=== PATIENT | male | born 1965 | race Caucasian/White ===

== ENCOUNTER 2018-05-20 02:47 | Emergency (ER) | payer MEDICAID ==
[~2018-05-20] VITALS: Ht 182.9 cm; Wt 81.8 kg
[~2018-05-20 02:47] MED LIST: COROS OP; FLO0.4C PO; NO HOME MEDS
[2018-05-20 02:55] VITALS: BP 136/101
== END 2018-05-20 03:15 | disposition home or self-care (01) ==
LOC: ER 02:48
DX: L02.415 Cutaneous abscess of right lower limb (principal); R61 Generalized hyperhidrosis; R68.83 Chills (without fever); F17.200 Nicotine dependence, unspecified, uncomplicated; Z59.0 Homelessness; Z79.899 Other long term (current) drug therapy
CPT/HCPCS: 99281

== ENCOUNTER 2018-07-21 13:58 | Emergency (ER) | payer MEDICAID ==
[~2018-07-21] VITALS: Ht 182.9 cm; Wt 76.8 kg
[~2018-07-21 13:58] MED LIST changes: +METH4TAB81 PO
[2018-07-21 14:06] VITALS: BP 122/98
== END 2018-07-21 14:52 | disposition home or self-care (01) ==
LOC: ER 13:59
DX: G89.29 Other chronic pain (principal); M54.5 Low back pain; Z79.899 Other long term (current) drug therapy; Z59.0 Homelessness
CPT/HCPCS: 99281

== ENCOUNTER 2018-09-22 19:04 | Emergency (ER) | payer MEDICAID ==
[~2018-09-22] VITALS: Ht 182.9 cm; Wt 74.3 kg
[2018-09-22 19:12] VITALS: BP 112/64
[2018-09-22] MEDS ORDERED: ketorolac trometh. 30mg/ml inj. IM ONE (20:40)
[2018-09-22] MEDS ORDERED: TETanus/Pertussis (Acell)/Diphther VAC/PF (Tdap-Adult) 0.5ml syringe IM ONE (21:45)
[2018-09-22] MEDS ORDERED: AMOX-580 PO (21:56)
== END 2018-09-22 22:13 | disposition home or self-care (01) ==
LOC: ER 19:05
DX: S91.331A Puncture wound without foreign body, right foot, initial encounter (principal); F17.210 Nicotine dependence, cigarettes, uncomplicated; Z79.899 Other long term (current) drug therapy; Z59.0 Homelessness; W45.0XXA Nail entering through skin, initial encounter; Y93.89 Activity, other specified; Y92.89 Other specified places as the place of occurrence of the external cause; Y99.8 Other external cause status
CPT/HCPCS: 73630; 90471; 90715; 96372; 99283; J1885

== ENCOUNTER 2019-02-25 12:35 | Emergency (ER) | payer MEDICAID ==
[~2019-02-25] VITALS: Ht 185.4 cm; Wt 79.0 kg
[2019-02-25 13:00] VITALS: BP 143/87
[2019-02-25] MEDS ORDERED: ondansetron 4mg rapidly disintigrating tab PO ONE (14:00)
[2019-02-25] MEDS ORDERED: LIDOcaine 1% W/epiNEPHrine 1:200,000 10ml vial IJ ONE (14:00)
[2019-02-25] MEDS ORDERED: HYDROcodone/acetaminophen 5mg/325mg tablet PO ONE (14:00)
[2019-02-25] MEDS ORDERED: BACDS PO (14:48)
== END 2019-02-25 16:06 | disposition home or self-care (01) ==
LOC: ER 12:36
DX: L02.416 Cutaneous abscess of left lower limb (principal); F10.99 Alcohol use, unspecified with unspecified alcohol-induced disorder; Z59.0 Homelessness; Z79.899 Other long term (current) drug therapy; Y90.9 Presence of alcohol in blood, level not specified
CPT/HCPCS: 10060; 82948; 99283

== ENCOUNTER 2019-03-24 23:11 | Emergency (ER) | payer MEDICAID ==
[~2019-03-24] VITALS: Ht 182.9 cm; Wt 86.0 kg
[2019-03-24] MEDS ORDERED: TETanus/Pertussis (Acell)/Diphther VAC/PF (Tdap-Adult) 0.5ml syringe IMVAC ONE (23:50)
[2019-03-24] MEDS ORDERED: LIDOcaine 1% W/epiNEPHrine 1:200,000 10ml vial IJ ONE (23:50)
[2019-03-25] MEDS ORDERED: SULF1TAB49 PO (00:15)
[2019-03-25 00:45] VITALS: BP 145/95
== END 2019-03-25 00:46 | disposition home or self-care (01) ==
LOC: ER 23:12
DX: L02.416 Cutaneous abscess of left lower limb (principal); L03.116 Cellulitis of left lower limb; F10.99 Alcohol use, unspecified with unspecified alcohol-induced disorder; Z59.0 Homelessness; Z79.899 Other long term (current) drug therapy; Y90.9 Presence of alcohol in blood, level not specified
CPT/HCPCS: 10061; 90471; 90715; 99284

== ENCOUNTER 2020-06-03 22:10 | Emergency (ER) | payer MEDICAID ==
[~2020-06-03] VITALS: Ht 182.9 cm; Wt 81.2 kg
[2020-06-03 22:17] VITALS: BP 93/61
[2020-06-03] MEDS ORDERED: ketorolac trometh inj. 60 MG/2 ML VIAL IM ONE (23:05)
[2020-06-03] MEDS ORDERED: acetaminophen 325mg tablet PO ONE (23:05)
[2020-06-03] MEDS ORDERED: IBUP-1984 PO (23:58)
[2020-06-03] MEDS ORDERED: SULF1TAB49 PO (23:58)
[2020-06-03] MEDS ORDERED: ACET-812 PO (23:58)
== END 2020-06-04 00:35 | disposition home or self-care (01) ==
LOC: ER 22:10
DX: S90.852A Superficial foreign body, left foot, initial encounter (principal); S90.851A Superficial foreign body, right foot, initial encounter; M79.672 Pain in left foot; M79.671 Pain in right foot; Z72.89 Other problems related to lifestyle; Z59.0 Homelessness; Z98.890 Other specified postprocedural states; Z79.2 Long term (current) use of antibiotics; Z79.899 Other long term (current) drug therapy; X58.XXXA Exposure to other specified factors, initial encounter; Y93.89 Activity, other specified; Y92.89 Other specified places as the place of occurrence of the external cause; Y99.8 Other external cause status
CPT/HCPCS: 73630; 82948; 96372; 99283; J1885

== ENCOUNTER 2023-07-13 16:17 | Emergency (ER) | payer MEDICAID ==
[~2023-07-13] VITALS: Ht 182.9 cm; Wt 81.0 kg
[~2023-07-13 16:17] MED LIST changes: +ACET-812 PO
[2023-07-13 16:29] VITALS: BP 134/86; PULSE 84; RESP 20; TEMP 97.8; O2SAT 98
== END 2023-07-13 17:12 | disposition home or self-care (01) ==
LOC: ER 16:18
DX: S61.211A Laceration without foreign body of left index finger without damage to nail, initial encounter (principal); Z79.1 Long term (current) use of non-steroidal anti-inflammatories (NSAID); Z79.899 Other long term (current) drug therapy; W45.8XXA Other foreign body or object entering through skin, initial encounter; Y93.89 Activity, other specified; Y92.89 Other specified places as the place of occurrence of the external cause; Y99.8 Other external cause status
CPT/HCPCS: 82948; 99282

== ENCOUNTER 2024-01-15 13:51 | Emergency (ER) | payer MEDICAID ==
[~2024-01-15] VITALS: Ht 182.9 cm; Wt 72.7 kg
[2024-01-15 13:59] VITALS: BP 153/67; PULSE 89; TEMP 98.2; O2SAT 100
[2024-01-15 16:22] VITALS: RESP 18
== END 2024-01-15 16:23 | disposition home or self-care (01) ==
LOC: ER 13:52
DX: G62.9 Polyneuropathy, unspecified (principal); Z79.899 Other long term (current) drug therapy; Z79.1 Long term (current) use of non-steroidal anti-inflammatories (NSAID)
CPT/HCPCS: 73110; 99283; A6212